=== PATIENT | male | born 1950 | race Caucasian/White ===

== ENCOUNTER 2016-10-15 16:46 | Outpatient (CLI) | payer OTHER, BC | END 2016-10-15 20:04 | disposition home or self-care (01) | LOC: SRD 16:46 | DX: J18.9 Pneumonia, unspecified organism (principal); J90 Pleural effusion, not elsewhere classified | CPT/HCPCS: 71020-TC ==

== ENCOUNTER 2016-11-08 08:39 | Outpatient (CLI) | payer OTHER, BC | END 2016-11-08 18:21 | disposition home or self-care (01) | LOC: SCT 08:39 | DX: I25.10 Atherosclerotic heart disease of native coronary artery without angina pectoris (principal); Z87.891 Personal history of nicotine dependence; I50.9 Heart failure, unspecified; K82.8 Other specified diseases of gallbladder; M47.899 Other spondylosis, site unspecified; J98.11 Atelectasis; J90 Pleural effusion, not elsewhere classified | CPT/HCPCS: 71250-TC ==

== ENCOUNTER 2016-11-11 08:24 | Inpatient (IN) | payer OTHER ==
[~2016-11-11] VITALS: Ht 162.6 cm; Wt 75.7 kg
[2016-11-11 08:24] VITALS: BP 126/87; PULSE 116; RESP 22; TEMP 97.1; O2SAT 98
--- NOTE | 2016-11-11 08:24 | NUR ---
BROUGHT BACK VIA WHEELCHAIR AND PLACED IN BED #1, TRIAGED. REPORT GIVEN TO MADY/YESSI
--- NOTE | 2016-11-11 08:35 | NUR ---
PATIENT WAS BROUGHT IN WITH SOB X 3 WEEKS AND WORST IN THE LAST 2 DAYS. PATIENT WAS BROUGHT IN WITH WHEELCHAIR. PATIENT IS SPEAKING IN FULL SENTENCES, SHOWING THAT HE IS NOT IN THAT MUCH DISTRESS. PATIENT IS COOPERATIVE. EKG WAS PERFORMED, IV WAS STARTED AND BLOOD WAS COLLECTED AND EKG WAS DONE. Addendum: 11/11/16 at 0846 by SCAR PATIENT SHOWS NO SOB, BREATHING IS UNLABORED, O2 SAT WAS 97% ON ROOM AIR
--- NOTE | 2016-11-11 08:37 | NUR ---
ER at bedside examining patient.
--- NOTE | 2016-11-11 08:40 | NUR ---
Medication reconciliation completed with information provided by SON. Any prior medication reconciliation on file was reviewed and corrected.
[2016-11-11] MEDS ORDERED: METF1000 PO (08:41)
[2016-11-11] MEDS ORDERED: TIZA4TAB11 PO (08:41)
[2016-11-11] MEDS ORDERED: MONT10TA25 PO (08:41)
[2016-11-11] MEDS ORDERED: GLYB5TAB7 PO (08:41)
[2016-11-11 08:46] LABS: BASOPHILS # (AUTO) 0.1 K/uL (0.0-0.2); BASOPHILS % (AUTO) 0.7 % (0.0-2.0); EOSINOPHILS # (AUTO) 0.1 K/uL (0.0-0.4); EOSINOPHILS % (AUTO) 0.8 % (0.0-4.0); HEMOGLOBIN 15.1 g/dL (14.0-18.0); LYMPHOCYTES # (AUTO) 2.7 K/uL (1.0-5.5); MEAN CORPUSCULAR HEMOGLOBIN 29 pg (27-31); MEAN CORPUSCULAR HGB CONC 32 % (32-36); MEAN CORPUSCULAR VOLUME 89 fL (79.0-98.0); MONOCYTES # (AUTO) 0.5 K/uL (0.0-1.0); MONOCYTES % (AUTO) 6.7 % (1.7-9.3); NEUTROPHILS # (AUTO) 4.5 K/uL (1.8-7.7); NEUTROPHILS % (AUTO) 57.8 % (40.0-70.0); PLATELET COUNT (AUTO) 194 K/uL (130-430); RED BLOOD CELL COUNT(AUTO) 5.27 MIL/uL (4.2-6.2); RED CELL DISTRIBUTION WIDTH 13.8 % (9.0-15.0); WHITE BLOOD COUNT (AUTO) 7.9 K/uL (4.8-10.8)
[2016-11-11 08:51] LABS: CALCIUM 9.1 mg/dL (8.4-11.0); CREATININE 1.28 mg/dL (0.55-1.30); POTASSIUM 3.8 mmol/L (3.5-5.1)
[2016-11-11 08:54] LABS: INR 1.2 (0.80-1.20); PROTHROMBIN TIME 12.8 SECS (9.5-12.5)
[2016-11-11 08:55] LABS: ALBUMIN 3.7 g/dL (3.4-4.8); TOTAL BILIRUBIN 1.3 mg/dL (0.0-1.0); TOTAL PROTEIN, SERUM 7.1 g/dL (6.4-8.3)
[2016-11-11] MEDS ORDERED: FUROSEMIDE 40 MG/4 ML VIAL IVP ONE (09:30)
--- NOTE | 2016-11-11 09:44 | NUR ---
DR GUO IS GOING TO BE ADMITTING THE PATIENT TO TELEMETRY. HE GAVE AN ORDER FOR CCHO, LOW FAT DIET AND CONSULT WITH DR TREJO AND ORDERED A 2D ECHO WITH DR TREJO TO READ. ADMITTED FOR CHF. PATIENT IS AWARE
[2016-11-11] MEDS ORDERED: ASPIRIN 81 MG TAB.CHEW PO ONE (09:45)
--- NOTE | 2016-11-11 09:54 | NUR ---
ADMIT NOTE Received pt from ER to the floor with a diagnosis of CHF. Admission process initiated. patient oriented to pain management, safety and call light-teach back done.
[2016-11-11 09:57] VITALS: BP 110/76; PULSE 102; RESP 19; TEMP 97.2; O2SAT 97
--- NOTE | 2016-11-11 10:05 | NUR ---
BROUGHT THE PATIENT TO ROOM 135 AND REPORT WAS GIVEN Jose Alfredo TAN RN. PATIENT WAS IN STABLE CONDITION WITH NO NOTED DISTRESS, DSICOMFORT OR SOB. PATIENT WAS TAKEN WITH MONITOR AND MADY ACCOMPANIED ME TO THE ROOM. IV WAS PATENT AND LASIX WAS GIVEN WITH NO INFILTRATION
[2016-11-11] MEDS ORDERED: FLU VACC QS 2016-17(36MOS+)/PF 0.5 ML/SYR SYRINGE I.M. PRN (10:15)
--- NOTE | 2016-11-11 10:36 | NUR ---
ADMISSION PATIENT IS ADMITTED TO TELE WITH CHF. PATIENT IS ALERT AND ORIENTED AND ABLE TO COMMUNICATE NEEDS TO STAFF. PATIENT IS AMBULATORY WITH ASSISTANCE. PATIENT IS EDUCATED NOT TO GET UP WITHOUT ASSISTANCE. CALL LIGHT IS WITHIN REACH AND WILL CONTINUE TO MONITOR. ADMISSION ASSESSMENT WAS COMPLETED.
--- NOTE | 2016-11-11 10:59 | NUR ---
CONSULTATION: REASON FOR CONSULT: CHF CONSULTING PHYSICIAN: MATTY TREJO MD ORDERED BY; MARYSOL GUO MD SPOKE WITH MILES
[2016-11-11 12:00] VITALS: BP 99/74; PULSE 90; RESP 18; TEMP 98.1; O2SAT 94
[2016-11-11] MEDS ORDERED: DEXTROSE 50% JECT 50 ML DISP.SYRIN IVP PRN (12:30)
--- NOTE | 2016-11-11 12:30 | NUR ---
BS CHECK DR GUO WAS IN TO SEE THE PATIENT AND NEW ORDERS TO CHECK BS WAS NOTED AND PATIENT'S BS WAS 336 AND 8 UNITS OF REGULAR INSULIN WAS GIVEN WITH ANOTHER NURSE TO WITNESS. CALL LIGHT IS WITHIN REACH AND WILL CONTINUE TO MONITOR.
[2016-11-11] MEDS: INSULIN REGULAR, HUMAN 100 UNITS/ML, 10 ML VIAL (novoLIN R) SUBCUT PRN ×3 (12:54→23:49)
[2016-11-11 12:55] LABS: ABG TOTAL HEMOGLOBIN 14.4 G/dL (12.0-18.0); BLOOD GAS BASE EXCESS -3.5 mmol/L (-3.0-3.0); BLOOD GAS COHb% 0.8 % (0.5-1.5); BLOOD GAS HHB 7.2 % (0.0-6.0); BLOOD O2Hb% 91.5 % (94.0-97.0)
[2016-11-11] MEDS ORDERED: CARVEDILOL 3.125 MG TABLET (COREG) PO ONE (13:30)
[2016-11-11] MEDS ORDERED: ASPIRIN 325 MG TABLET (ECOTRIN) PO ONE (13:30)
--- NOTE | 2016-11-11 14:28 | NUR ---
NOTE PATIENT IS RESTING IN BED RESTING COMFORTABLY IN BED WITH NO COMPLAINTS OF PAIN, NO NOTED DISTRESS, DISCOMFORT OR SOB. PATIENT HAD AN ABG DRAWN AND O2 WAS LOW, SO RT PUT THE PATIENT ON 02@2L VIA N/C AND THE PATIENT IS TOLERATING IT WELL. THE PATIENT WAS NOT GIVEN COREG BECAUSE THE BP WAS 99/68. CALL LIGHT IS WITHIN REACH AND WILL CONTINUE TO MONITOR
[2016-11-11] MEDS: tiZANidine HCL 4 MG TABLET PO SCH ×2 (15:01→20:18)
[2016-11-11 16:00] VITALS: BP 110/77; PULSE 99; RESP 18; TEMP 97.6; O2SAT 98
--- NOTE | 2016-11-11 16:11 | NUR ---
NOTE PATIENT IS RESTING COMFORTABLY IN BED WITH NO COMPLAINTS OF PAIN, NO NOTED DISTRESS, DISCOMFORT OR SOB. GAVE REPORT TO PIEDAD AND PATIENT IS AWARE. CALL LIGHT IS WITHIN REACH
--- NOTE | 2016-11-11 16:30 | NUR ---
RECEIVED PATIENT PT ASLEEP. NO SIGNS OF FACIAL GRIMACING FOR PAIN OR DISCOMFORT. NO DISTRESS NOTED. O2 VIA NASAL CANNULA @ 2L IN PLACE. CALL LIGHT WITHIN REACH. WILL MONITOR.
[2016-11-11] MEDS: metFORMIN HCL 500 MG TABLET PO SCH (17:29)
[2016-11-11] MEDS: MONTELUKAST 10 MG TABLET PO SCH (17:29)
--- NOTE | 2016-11-11 18:30 | NUR ---
CLOSING NOTES PT AWAKE RESTING IN BED WITH FAMILY AT BEDSIDE. NO SIGNIFICANT CHANGES NOTED. KEPT COMFORTABLE. WILL ENDORSE CARE TO INCOMING NURSE.
--- NOTE | 2016-11-11 19:40 | NUR ---
initial nursing notes: Patient is awake. Patient has an IV access on the right AC. Patient has BLE pitting edema +2. Encouraged patient to elevated both legs to promote fluid return and to decrease swelling.
[2016-11-11 19:56] VITALS: BP 107/75; PULSE 99; RESP 16; TEMP 97.7; O2SAT 97
[2016-11-11] MEDS: glyBURIDE 5 MG TABLET PO SCH (20:19)
[2016-11-11] MEDS: CARVEDILOL 6.25 MG TABLET (COREG) PO SCH (20:20)
[2016-11-11] MEDS: FUROSEMIDE 40 MG/4 ML VIAL IVP SCH (20:23)
[2016-11-11] MEDS ORDERED: CARVEDILOL 3.125 MG TABLET (COREG) PO SCH (21:00)
--- NOTE | 2016-11-11 21:40 | NUR ---
nursing rounds: Patient is sitting on the chair next to his bed. Encouraged patient to use urinal for voiding since patient received diuretics.
--- NOTE | 2016-11-11 23:40 | NUR ---
nursing rounds: Patient calmly resting in bed. Patient is on 2L/min oxygen with humidifier via nasal cannula.
[2016-11-12 00:52] VITALS: BP 95/66; PULSE 99; RESP 18; TEMP 96.8; O2SAT 98
--- NOTE | 2016-11-12 01:40 | NUR ---
nursing rounds: Patient asleep in bed. Kept bed alarm on for patient's safety.
--- NOTE | 2016-11-12 03:40 | NUR ---
nursing rounds: Patient is sleeping in bed. Patient has no shortness of breath.
[2016-11-12 04:27] VITALS: BP 119/77; PULSE 88; RESP 20; TEMP 97; O2SAT 96
--- NOTE | 2016-11-12 05:40 | NUR ---
nursing rounds: Patient calmly resting in bed. Call light within patient's reach.
[2016-11-12 07:19] LABS: BASOPHILS # (AUTO) 0.1 K/uL (0.0-0.2); BASOPHILS % (AUTO) 0.8 % (0.0-2.0); EOSINOPHILS # (AUTO) 0.1 K/uL (0.0-0.4); EOSINOPHILS % (AUTO) 1.4 % (0.0-4.0); HEMATOCRIT 41.7 % (36-54); HEMOGLOBIN 14.1 g/dL (14.0-18.0); LYMPHOCYTES # (AUTO) 2.2 K/uL (1.0-5.5); MEAN CORPUSCULAR HEMOGLOBIN 30 pg (27-31); MEAN CORPUSCULAR HGB CONC 34 % (32-36); MEAN CORPUSCULAR VOLUME 88 fL (79.0-98.0); MONOCYTES # (AUTO) 0.5 K/uL (0.0-1.0); NEUTROPHILS # (AUTO) 4.7 K/uL (1.8-7.7); NEUTROPHILS % (AUTO) 62.8 % (40.0-70.0); PLATELET COUNT (AUTO) 150 K/uL (130-430); RED BLOOD CELL COUNT(AUTO) 4.73 MIL/uL (4.2-6.2); RED CELL DISTRIBUTION WIDTH 13.9 % (9.0-15.0); WHITE BLOOD COUNT (AUTO) 7.6 K/uL (4.8-10.8)
--- NOTE | 2016-11-12 07:45 | NUR ---
closing nursing notes: Patient is awake, alert and oriented X 4. Patient is in no acute respiratory distress. No episodes of fall and no injuries throughout the mother helper. Provided nursing report to incoming morning shift nurse, NIMA Pereyra, at patient's bedside.
[2016-11-12 07:49] LABS: ALBUMIN 3.3 g/dL (3.4-4.8); CALCIUM 8.9 mg/dL (8.4-11.0); CREATININE 1.18 mg/dL (0.55-1.30); POTASSIUM 3.8 mmol/L (3.5-5.1); THYROID STIMULATING HORMONE 1.5 uIu/mL (0.34-4.82); TOTAL BILIRUBIN 1.1 mg/dL (0.0-1.0); TOTAL PROTEIN, SERUM 6.3 g/dL (6.4-8.3)
--- NOTE | 2016-11-12 08:07 | NUR ---
INITIAL NOTE PT SITTING IN BEDSIDE CHAIR, ALERT AND ORIENTED X4, NO S/S OF DISTRESS OR COMPLAINT OF PAIN AT THIS TIME, NO SOB NOTED, NASAL CANULA IN PLACE, VSS, NOTED RAC SALINE LOCK, PATENT, NO S/S OF INFILTRATION. BLE EDEMA NOTED, 2+ PITTING, PATIENT HAS FEET ELEVATED AT THIS TIME FROM PREVIOUS EDUCATION. SAFETY MEASURES IN PLACE, PT REPREINTED TO USE OF CALL LIGHT AND IT IS PLACED WITHIN REACH. WILL FOLLOW UP.
[2016-11-12 08:13] VITALS: BP 122/81; PULSE 98; RESP 19; TEMP 97.3; O2SAT 98
[2016-11-12] MEDS: metFORMIN HCL 500 MG TABLET PO SCH ×2 (08:24→17:56)
[2016-11-12] MEDS: THIAMINE HCL 100 MG TABLET PO SCH (08:24)
[2016-11-12] MEDS: tiZANidine HCL 4 MG TABLET PO SCH ×3 (08:25→20:54)
[2016-11-12] MEDS: LOSARTAN POTASSIUM 25 MG TABLET PO SCH (08:27)
[2016-11-12] MEDS: ASPIRIN 325 MG TABLET (ECOTRIN) PO SCH (08:27)
[2016-11-12] MEDS: FOLIC ACID 1 MG TABLET PO SCH (08:27)
[2016-11-12] MEDS: CARVEDILOL 6.25 MG TABLET (COREG) PO SCH (08:27)
[2016-11-12] MEDS: FUROSEMIDE 40 MG/4 ML VIAL IVP SCH (08:28)
[2016-11-12] MEDS: glyBURIDE 5 MG TABLET PO SCH ×2 (08:29→20:55)
--- NOTE | 2016-11-12 09:55 | NUR ---
DR GUO AT BEDSIDE
[2016-11-12] MEDS ORDERED: FUROSEMIDE 100 MG in D5W 90 ML IV SCH (10:00)
--- NOTE | 2016-11-12 10:30 | NUR ---
DR NEIL SQUIRES
[2016-11-12 12:00] VITALS: BP 102/55; PULSE 94; RESP 14; TEMP 97.5; O2SAT 98
[2016-11-12] MEDS: INSULIN REGULAR, HUMAN 100 UNITS/ML, 10 ML VIAL (novoLIN R) SUBCUT PRN ×2 (12:13→17:58)
--- NOTE | 2016-11-12 12:30 | NUR ---
ACCUCHECK 205, COVERED PER SLIDING SCALE.
--- NOTE | 2016-11-12 14:30 | NUR ---
ROUNDS PT SITTING IN SIDE CHAIR, NO S/S OF DISTRESS, SOB, OR COMPLAINT OF PAIN, VSS, NEEDS ATTENDED TO WILL FOLLOW UP.
--- NOTE | 2016-11-12 15:45 | NUR ---
ROUNDS PT SITTING IN SIDE CHAIR, RESTING, NO S/S OF DISTRESS NOTED. CALL LIGHT WITH IN REACH, WILL FOLLOW UP
[2016-11-12 16:00] VITALS: BP 97/54; PULSE 82; RESP 20; TEMP 96.3; O2SAT 100
--- NOTE | 2016-11-12 17:30 | NUR ---
ACCUCHECK 155, COVERED PER SLIDING SCALE
[2016-11-12] MEDS: MONTELUKAST 10 MG TABLET PO SCH (17:56)
--- NOTE | 2016-11-12 18:30 | NUR ---
CLOSING NOTE PT LAYING IN BED, RESTING, EASY TO AROUSE, NO S/S OF DISTRESS NOTED, NASAL CANULA REPOSITIONED, LASIX DRIP INFUSING TO RAC, PATENT, NO S/S OF INFILTRATION, PT TOLERATING WELL. SAFETY MEASURES IN PLACE DURING SHIFT, ALL NEEDS ATTENDED TOO, BED IN LOW POSITION AND LOCKED, WILL GIVE REPORT TO FOLLOWING SHIFT.
[2016-11-12 19:50] VITALS: BP 99/79; PULSE 89; RESP 15; TEMP 98.6; O2SAT 99
--- NOTE | 2016-11-12 20:53 | NUR ---
PAGED: I PAGED DR. TREJO @ [phone] I SPOKE WITH YAZAN EXCHANGE DR. TREJO CALLED BACK @ [phone]
--- NOTE | 2016-11-12 20:56 | NUR ---
PAGED: I PAGED DR. TREJO @ [phone] I SPOKE WITH YAZAN EXCHANGE DR. TREJO CALLED BACK @ [phone]
--- NOTE | 2016-11-12 20:57 | NUR ---
SPOKE WITH DR. PERALTA REGARDING PATIENT BLOOD PRESSURE OF 99/79. SAID IT IS OK TO GIVE 2100 MEDICATION COREG. STATED TO HOLD COREG IF SYSTOLIC IS 90 OR BELOW. WILL INPUT ORDER.
[2016-11-12] MEDS ORDERED: CARVEDILOL 6.25 MG TABLET (COREG) PO SCH (21:00)
--- NOTE | 2016-11-12 21:03 | NUR ---
HYGIENE GAVE PATIENT BASIN AND BODY WASH. PATIENT IS IN THE RESTROOM. GAIT IS STEADY. WILL CONTINUE TO MONITOR.
--- NOTE | 2016-11-12 22:30 | NUR ---
RAPID RESPONSE PATIENT COMPLAINED OF FEELING DIZZY. PATIENT BLOOD PRESSURE WAS 69/57. HR= 95 O2= 98 ON 2L. RR= 16. NO COMPLAINTS OF PAIN. PATIENT IS A/OX4. NO SIGNS OF DISTRESS. BREATHING IS NON LABORED. 2235= BP 71/57 VB=189, O2 97%, RR=15, NO COMPLAINTS OF PAIN 2240= BP 83/50, HR=99, O2 98%, RR 17, NO COMPLAINTS OF PAIN 2241=SPOKE TO DR. TREJO. WILL INPUT NEW ORDERS.
[2016-11-12] MEDS ORDERED: NS 250 ML IV ONE (23:15)
[2016-11-13] VITALS (7 sets, daily range): BP systolic 81–113; BP diastolic 48–73; PULSE 79–94; RESP 15–19; TEMP 96.7–98.9; O2SAT 94–100
--- NOTE | 2016-11-13 | NUR ---
ROUNDS PATIENT IS A/OX4. NO SIGNS OF DISTRESS. BREATHING IS NON LABORED. BP=96/73. HR=89, O2= 98% 2L OF O2, RR=15. WILL CONTINUE TO MONITOR. CALL LIGHT IS WITHIN REACH. BED IS ON. DAUGHTER IS AT BEDSIDE.
--- NOTE | 2016-11-13 01:20 | NUR ---
ROUNDS PATIENT IS IN BED SLEEPING. NO SIGNS OF DISTRESS. BREATHING IS NON LABORED. IO=154/79, HR=89, RR=15, CALL LIGHT IS WITHIN REACH. BED ALARM IS ON. SAFETY MEASURES ARE IN PLACE. WILL CONTINUE TO MONITOR.
--- NOTE | 2016-11-13 03:15 | NUR ---
ROUNDS PATIENT IS IN BED SLEEPING. NI SIGNS IF DISTRESS. BREATHING IS NON LABORED. CALL LIGHT IS WITHIN REACH. WILL CONTINUE TO MONITOR. BED IS ON.
--- NOTE | 2016-11-13 05:04 | NUR ---
ROUNDS PATIENT WAS GIVEN URINAL TO VOID IN.
--- NOTE | 2016-11-13 06:55 | NUR ---
SPOKE TO DOCTOR NEIL REGARDING PATIENT BLOOD PRESSURE 88/68. INFORMED MD THAT PATIENT IS ASYMPTOMATIC. PATIENT IS A/OX4. NO COMPLAINTS OF DIZZINESS. PATIENT STATED THAT HE FELT FINE. VITAL SIGNS ARE STATED. MD STATED TO CONTINUE TO HOLD LASIX DRIP AND THAT HE'LL SEE PATIENT THIS MORNING.
--- NOTE | 2016-11-13 07:20 | NUR ---
CLOSING NOTES PATIENT IS A/OX4. NO SIGNS OF DISTRESS. BREATHING IS NON LABORED. PATIENT IS SITTING UP AND WATCHING TV. IV IS PATENT AND SHOWS NO SIGNS OF COMPLICATION. CALL LIGHT IS WITHIN REACH. BED ALARM IS ON. REPORT GIVEN TO MORNING NURSE. ALL CARE ENDORSE TO THE MORNING NURSE.
--- NOTE | 2016-11-13 08:00 | NUR ---
INITIAL NOTE PT LAYING IN BED, RESTING, EASY TO AROUSE, NO S/S OF DISTRESS NOTED, PT DENIES FEELING DIZZY, DISORIENTED OR SOB, BLOOD PRESSURE 113/62 HR 87, WILL CONTINUE TO MONITOR BLOOD PRESSURE. NASAL CANULA IN PLACE. IV NOTED RAC SALINE LOCKED. SAFETY MEASURES IN PLACE, PT REORIENTED TO USE OF CALL LIGHT AND IT IS PLACED WITHIN REACH. WILL CONTINUE TO MONITOR.
[2016-11-13 08:15] LABS: ALBUMIN 3.1 g/dL (3.4-4.8); CALCIUM 8.6 mg/dL (8.4-11.0); CREATININE 1.3 mg/dL (0.55-1.30); POTASSIUM 3.8 mmol/L (3.5-5.1); TOTAL BILIRUBIN 0.9 mg/dL (0.0-1.0)
[2016-11-13] MEDS: THIAMINE HCL 100 MG TABLET PO SCH (08:52)
[2016-11-13] MEDS: metFORMIN HCL 500 MG TABLET PO SCH ×2 (08:52→17:27)
[2016-11-13] MEDS: FOLIC ACID 1 MG TABLET PO SCH (08:53)
[2016-11-13] MEDS: tiZANidine HCL 4 MG TABLET PO SCH ×3 (08:53→20:58)
[2016-11-13] MEDS: glyBURIDE 5 MG TABLET PO SCH ×2 (08:53→20:58)
[2016-11-13] MEDS: ASPIRIN 325 MG TABLET (ECOTRIN) PO SCH (08:53)
[2016-11-13] MEDS: LOSARTAN POTASSIUM 25 MG TABLET PO SCH (09:00)
--- NOTE | 2016-11-13 09:30 | NUR ---
PT SITTING IN SIDE CHAIR, CURRENT BLOOD PRESSURE 90/51 HEART RATE 94 , WILL HOLD BLOOD PRESSURE MEDICATIONS AND MAKE MD AWARE.
--- NOTE | 2016-11-13 09:35 | NUR ---
DR TREJO MAKING ROUNDS, AWARE OF BLOOD PRESSURE MEDICATION BEING HELD DUE TO LOW BP
--- NOTE | 2016-11-13 11:01 | NUR ---
DR SARI LIZARRAGA
[2016-11-13] MEDS ORDERED: FUROSEMIDE 40 MG TABLET PO ONE (11:30)
[2016-11-13] MEDS: INSULIN REGULAR, HUMAN 100 UNITS/ML, 10 ML VIAL (novoLIN R) SUBCUT PRN (12:03)
--- NOTE | 2016-11-13 13:00 | NUR ---
ACCUCHECK 223, COVERED PER SLIDING SCALE
[2016-11-13] MEDS: MONTELUKAST 10 MG TABLET PO SCH (17:27)
--- NOTE | 2016-11-13 17:30 | NUR ---
ACCUCHECK 83, NO COVERAGE NEEDED. PT ENCOURAGED TO HAVE A GOOD DINNER, WILL FOLLOW UP
--- NOTE | 2016-11-13 18:00 | NUR ---
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 AWAITING CALL BACK
--- NOTE | 2016-11-13 18:32 | NUR ---
UPDATED DR JOHNSON ON PATIENTS STATUS, RELAYED THAT PATIENTS BLOOD PRESSURE HAS BEEN DECREASED TODAY, AVERAGING AROUND 90/52, INFORMED THAT COREG, LOSARTAN, AND LASIX HAVE BEEN HELD AND INQUIRED TO WHAT TO DO DOING THEY EVENING. MD STATED TO HOLD BLOOD PRESSURE MEDICATIONS THIS EVENING AND TO GIVE THE LASIX. WILL INFORM SHERIFF SERGEANT.
--- NOTE | 2016-11-13 18:38 | NUR ---
CLOSING NOTE PT LAYING IN BED, COMPLAINS OF FEELING LIKE HIS BLOOD PRESSURE IS LOW AGAIN, BP 91/59 HR [address] JOHNSON ORDERS. WILL UPDATE FOLLOWING SHIFT. NASAL CANULA IN PLACE, IV SITE TO RAC PATENT AND INTACT. ALL NEEDS MEET DURING SHIFT, SAFETY MEASURES IN PLACE, CALL LIGHT WITHIN REACH, WILL GIVE REPORT TO FOLLOWING SHIFT.
--- NOTE | 2016-11-13 19:40 | NUR ---
OPENING NOTE PATIENT IS IN BED WATCHING TV AND TALKING ON THE PHONE. VITAL SIGNS ARE STABLE. NO SIGNS OF DISTRESS. BREATHING IS NON LABORED. IV IS PATENT AND SHOWS NO SIGNS OF COMPLICATIONS. PATIENT HAS NO COMPLAINTS OF PAIN. PATIENT INSTRUCTED TO CALL FOR ASSISTANCE. BED IS ON. CALL LIGHT IS WITHIN REACH. WILL CONTINUE TO MONITOR.
[2016-11-13] MEDS: FUROSEMIDE 40 MG TABLET PO SCH (20:58)
[2016-11-13] MEDS: CARVEDILOL 6.25 MG TABLET (COREG) PO SCH (21:00)
--- NOTE | 2016-11-13 21:00 | NUR ---
ROUNDS PATIENT WAS ASSISTED TO THE RESTROOM AND BACK INTO BED. PATIENT HAS NO COMPLAINTS OF PAIN. BREATHING IS NON LABORED. NO SIGNS OF DISTRESS. CALL LIGHT IS WITHIN REACH. BED ALARM IS ON. WILL CONTINUE TO MONITOR.
--- NOTE | 2016-11-13 21:00 | NUR ---
MEDICATION NOT GIVEN 2100 COREG WAS NOT GIVEN BLOOD PRESSURE IS TOO LOW. BP=93/67. IS AWARE.
--- NOTE | 2016-11-13 22:00 | NUR ---
ROUNDS PATIENT IS IN BED SITTING UP AND TALKING TO DAUGHTER. NO SIGNS OF DISTRESS. BREATHING IS NON LABORED. CALL LIGHT IS WITHIN REACH. BED ALARM IS ON. WILL CONTINUE TO MONITOR.
[2016-11-14] VITALS (8 sets, daily range): BP systolic 91–118; BP diastolic 42–80; PULSE 51–103; RESP 14–18; TEMP 97.3–98.5; O2SAT 96–100
--- NOTE | 2016-11-14 00:50 | NUR ---
ROUNDS PATIENT IS IN BED RESTING COMFORTABLY. NO SIGNS OF DISTRESS. PATIENT HAS NO COMPLAINTS OF PAIN. BREATHING IS NON LABORED. BED ALARM IS ON. CALL LIGHT IS WITHIN REACH. WILL CONTINUE TO MONITOR.
--- NOTE | 2016-11-14 03:35 | NUR ---
ROUNDS PATIENT IS IN BED SLEEPING. NO SIGNS OF DISTRESS. BREATHING IS NON LABORED. CALL LIGHT IS WITHIN REACH. BED ALARM IS ON. WILL CONTINUE TO MONITOR.
--- NOTE | 2016-11-14 05:45 | NUR ---
IV SITE CLEANED IV SITE WAS CLEANED. SITE APPEARED BLOODY. IV IS PATENT AND SHOWS NO SIGNS OF COMPLICATIONS.
--- NOTE | 2016-11-14 06:57 | NUR ---
CLOSING NOTES PATIENT IS A/OX4. NO SIGNS OF DISTRESS. BREATHING IS NON LABORED. PATIENT IS WATCHING TV AND SITTING UP IN BED. PATIENT HAS NO COMPLAINTS OF PAIN. CALL LIGHT IS WITHIN REACH. BED ALARM IS ON. WILL ENDORSE ALL CARE TO THE MORNING NURSE.
--- NOTE | 2016-11-14 08:15 | NUR ---
OPENING NOTE RECEIVED REPORT FROM NIGHT NURSE, PATIENT IS RESTING IN BED COMFORTABLY WITH NO COMPLAINTS OF PAIN, NO NOTED DISTRESS, DISCOMFORT OR SOB. PATIENT IS ALERT AND ORIENTED AND ABLE TO COMMUNICATE NEEDS TO STAFF, PATIENT IS AMBULATORY WITH ASSISTANCE. BED IS IN LOWEST POSITION AND CALL LIGHT IS WITHIN REACH AND WILL CONTINUE TO MONITOR.
[2016-11-14 08:21] LABS: CALCIUM 8.7 mg/dL (8.4-11.0); CREATININE 1.24 mg/dL (0.55-1.30); POTASSIUM 3.9 mmol/L (3.5-5.1)
[2016-11-14] MEDS: THIAMINE HCL 100 MG TABLET PO SCH (08:28)
[2016-11-14] MEDS: metFORMIN HCL 500 MG TABLET PO SCH ×2 (08:28→17:18)
[2016-11-14] MEDS: glyBURIDE 5 MG TABLET PO SCH ×2 (08:28→20:56)
[2016-11-14] MEDS: FOLIC ACID 1 MG TABLET PO SCH (08:28)
[2016-11-14] MEDS: LOSARTAN POTASSIUM 25 MG TABLET PO SCH (08:29)
[2016-11-14] MEDS: FUROSEMIDE 40 MG TABLET PO SCH ×2 (08:29→20:56)
[2016-11-14] MEDS: ASPIRIN 325 MG TABLET (ECOTRIN) PO SCH (08:29)
[2016-11-14] MEDS: tiZANidine HCL 4 MG TABLET PO SCH ×3 (08:29→20:57)
[2016-11-14] MEDS: CARVEDILOL 6.25 MG TABLET (COREG) PO SCH ×2 (08:29→20:55)
--- NOTE | 2016-11-14 10:42 | NUR ---
NOTE PATIENT IS RESTING IN BED COMFORTABLY WITH NO COMPLAINTS OF PAIN, NO NOTED DISTRESS, DISCOMFORT OR SOB. BED IS IN LOWEST POSITION AND CALL LIGHT IS WITHIN REACH. WILL CONTINUE TO MONITOR. PATIENT'S MEDICATIONS WERE GIVEN WITH NO COMPLICATIONS EXCEPT THE BLOOD PRESSURE MEDICATIONS BECAUSE THE PATIENT'S BP IS 94/55.
--- NOTE | 2016-11-14 12:00 | NUR ---
NOTE PATIENT IS RESTING IN BED COMFORTABLY WITH NO COMPLAINTS OF PAIN, NO NOTED DISTRESS, DISCOMFORT OR SOB. BS WAS CHECKED AND IT WAS 189 AND 2 UNITS OF REGULAR WAS GIVEN WITH ANOTHER RN TO WITNESS. CALL LIGHT IS WITHIN REACH AND WILL CONTINUE TO MONITOR.
[2016-11-14] MEDS: INSULIN REGULAR, HUMAN 100 UNITS/ML, 10 ML VIAL (novoLIN R) SUBCUT PRN (12:03)
--- NOTE | 2016-11-14 14:30 | NUR ---
NOTE PATIENT IS RESTING IN BED COMFORTABLY WITH NO COMPLAINTS OF PAIN, NO NOTED DISTRESS, DISCOMFORT OR SOB. BED IS IN LOWEST POSITION AND CALL LIGHT IS WITHIN REACH. WILL CONTINUE TO MONITOR.
[2016-11-14] MEDS: IPRATROPIUM/ALBUTEROL SULFATE 3 ML AMPUL.NEB INH SCH ×2 (15:00→23:23)
--- NOTE | 2016-11-14 16:48 | NUR ---
NOTE PATIENT IS RESTING COMFORTABLY IN BED WITH NO COMPLAINTS OF PAIN, NO NOTED DISTRESS, DISCOMFORT OR SOB. BED IS IN LOWEST POSITION AND CALL LIGHT IS WITHIN REACH. WILL CONTINUE TO MONITOR.
[2016-11-14] MEDS: MONTELUKAST 10 MG TABLET PO SCH (17:18)
--- NOTE | 2016-11-14 18:24 | NUR ---
CLOSING NOTE PATIENT IS RESTING IN BED COMFORTABLY WITH NO COMPLAINTS OF PAIN, NO NOTED DISTRESS, DISCOMFORT OR SOB. PATIENT IS ON O2@2L VIA N/C. PATIENT'S BS WAS CHECKED AND IT WAS 102 AND NO COVERAGE WAS NEEDED. BED IS IN LOWEST POSITION AND CALL LIGHT IS WITHIN REACH. WILL GIVE REPORT TO NIGHT NURSE.
--- NOTE | 2016-11-14 19:30 | NUR ---
notes received the pt from the day nurse.pt sitting up in a chair with no c/o sobo2 via nc in place at 2l/min.iv to lt ac intact,no redness or swelling noted.monitor in place and shows SR. call light within reach,safety measures in progress.continue to monitor.
--- NOTE | 2016-11-14 21:30 | NUR ---
notes pt back in bed watching tv.medications given and tolerated well.continue to monitor.
--- NOTE | 2016-11-14 23:53 | NUR ---
notes pt awaken for accucheck that was 130,no insulin needed per s/s.continue to monitor.
[2016-11-15 00:36] VITALS: BP 98/65; PULSE 92; RESP 18; TEMP 97.3; O2SAT 96
--- NOTE | 2016-11-15 01:30 | NUR ---
pt sleeping ,call light within reach.continue to monitor.
--- NOTE | 2016-11-15 03:30 | NUR ---
pt remains asleep,call light within reach.continue to monitor.
[2016-11-15 04:22] VITALS: BP 117/93; PULSE 108; RESP 18; TEMP 97; O2SAT 96
--- NOTE | 2016-11-15 05:35 | NUR ---
notes pt sleeping.will continue to monitor.
--- NOTE | 2016-11-15 06:19 | NUR ---
closing notes pt awake alert,accucheck was 101,no insulin needed.will endorse the care of the pt to the day nurse.
[2016-11-15 07:41] LABS: CALCIUM 8.6 mg/dL (8.4-11.0); CREATININE 1.32 mg/dL (0.55-1.30); POTASSIUM 3.5 mmol/L (3.5-5.1)
[2016-11-15 08:00] VITALS: BP 112/57; PULSE 68; RESP 18; TEMP 97.9; O2SAT 95
--- NOTE | 2016-11-15 08:37 | NUR ---
OPENING NOTE RECEIVED REPORT FROM NIGHT NURSE, PATIENT IS RESTING COMFORTABLY IN BED WITH NO COMPLAINTS OF PAIN, NO NOTED DISTRESS, DISCOMFORT OR SOB. PATIENT IS ALERT AND ORIENTED AND ABLE TO COMMUNICATE NEEDS TO STAFF. PATIENT IS AMBULATORY WITH ASSISTANCE. BED IS IN LOWEST POSITION, CALL LIGHT IS WITHIN REACH. PATIENT IS EDUCATED NOT TO GET UP WITHOUT ASSISTANCE. WILL CONTINUE TO MONITOR.
[2016-11-15] MEDS: THIAMINE HCL 100 MG TABLET PO SCH (08:55)
[2016-11-15] MEDS: FOLIC ACID 1 MG TABLET PO SCH (08:55)
[2016-11-15] MEDS: glyBURIDE 5 MG TABLET PO SCH (08:55)
[2016-11-15] MEDS: ASPIRIN 325 MG TABLET (ECOTRIN) PO SCH (08:55)
[2016-11-15] MEDS: tiZANidine HCL 4 MG TABLET PO SCH (08:56)
[2016-11-15] MEDS: FUROSEMIDE 40 MG TABLET PO SCH (08:56)
[2016-11-15] MEDS: metFORMIN HCL 500 MG TABLET PO SCH (08:56)
[2016-11-15] MEDS: CARVEDILOL 6.25 MG TABLET (COREG) PO SCH (08:56)
[2016-11-15] MEDS: LOSARTAN POTASSIUM 25 MG TABLET PO SCH (08:56)
[2016-11-15] MEDS ORDERED: ALBMDI INH (10:15)
--- NOTE | 2016-11-15 10:59 | NUR ---
NOTE DR RIVER WAS HERE TO SEE THE PATIENT AND NEW ORDERS TO DISCHARGE THE PATIENT HOME WAS NOTED AND CARRIED OUT. PATIENT IS AWARE AND HAS NO COMPLAINTS OF PAIN, NO NOTED DISTRESS, DISCOMFORT OR SOB. WILL WORK ON THE DISCHARGE PAPERWORK AND WILL GIVE TRANSITION OF CARE BEFORE DISCHARGING THE PATIENT. CALL LIGHT IS WITHIN REACH AND WILL CONTINUE TO MONITOR.
[2016-11-15 11:16] VITALS: BP 113/73; PULSE 103; RESP 18; TEMP 97.9; O2SAT 93
--- NOTE | 2016-11-15 11:45 | NUR ---
DISCHARGE PATIENT WAS GIVEN TRANSITION OF CARE INSTRUCTIONS AND PATIENT VERBALIZED UNDERSTANDING. THE PATIENT WAS GIVEN THE FLU VACCINE AND THE IV WAS TAKEN OUT AND THE ARM BAND WAS CUT OFF. THE PATIENT ASKED FOR DR TREJO'S NUMBER TO FOLLOW UP WITH AND IT WAS GIVEN. THE PATIENT STATED THAT ALL HIS BELONGINGS ARE BEING TAKEN HOME. PATIENT IS JUST WAITING FOR TO PICK HIM UP.
[2016-11-15 11:47] VITALS: BP 113/73; PULSE 103; RESP 18; TEMP 97.9; O2SAT 93
--- NOTE | 2016-11-20 12:10 | NUR ---
Discharge Follow Up Phone Call DRIVER ENGINEER phoned patient, , on 11/18/16, 11/19/16 and 11/20/16 and left voicemail messages with offer of assistance and Social Service contact information. No further calls will be attempted.
== END 2016-11-15 13:25 | disposition home or self-care (01) | DRG 291 ==
LOC: SED 08:24 → STU 09:44
PROVIDERS: ADMIT Internal Medicine Hospice and Palliative Medicine; ATTEND Internal Medicine Hospice and Palliative Medicine
DX: I13.0 Hypertensive heart and chronic kidney disease with heart failure and stage 1 through stage 4 chronic kidney disease, or unspecified chronic kidney disease (principal); I50.43 Acute on chronic combined systolic (congestive) and diastolic (congestive) heart failure; I42.0 Dilated cardiomyopathy; E11.65 Type 2 diabetes mellitus with hyperglycemia; I34.0 Nonrheumatic mitral (valve) insufficiency; F10.20 Alcohol dependence, uncomplicated; Z87.891 Personal history of nicotine dependence; Z83.3 Family history of diabetes mellitus; Z79.82 Long term (current) use of aspirin; Z79.899 Other long term (current) drug therapy; N18.3 Chronic kidney disease, stage 3 (moderate)
CPT/HCPCS: 36415; 36600; 71010; 71020-TC; 71250-TC; 80048; 80053; 80061; 82550-TC; 82803-TC; 82962; 83036; 83735-TC; 83880; 84443-TC; 84484; 85025; 85610-TC; 85730-TC; 93005; 93306; 94640; 96374; 99285; J1815; J1940; J7030; J7040; J7060; Q2037

== ENCOUNTER 2016-12-04 19:16 | Emergency (ER) | payer OTHER, BC ==
[~2016-12-04] VITALS: Ht 162.6 cm; Wt 77.6 kg
[~2016-12-04 19:16] MED LIST: ALBMDI INH; GLYB5TAB7 PO; METF1000 PO; MONT10TA25 PO; TIZA4TAB11 PO
[2016-12-04 19:18] VITALS: BP 129/90; PULSE 110; RESP 18; TEMP 97.8; O2SAT 96
--- NOTE | 2016-12-04 19:24 | NUR ---
Patient to ER bed 4 to gown for evaluation. Side rails up. Report given to Mamta HERRING.
--- NOTE | 2016-12-04 19:33 | NUR ---
Patient to ER C/O SOB. Patient states that today he is having a hard time takign a deep breath. Patient states that recently he was diagnosed with CHF and is on medication for fluid overload. AAOx4, unlabored breathing, clear lungs, no signs of acute distress
[2016-12-04] MEDS ORDERED: FURO20TA4 PO (19:42)
[2016-12-04] MEDS ORDERED: LOSA25TA3 PO (19:42)
[2016-12-04] MEDS ORDERED: SITA100T7 PO (19:43)
[2016-12-04] MEDS ORDERED: CARV3.1246 PO (19:43)
[2016-12-04] MEDS ORDERED: ASPI-1063 PO (19:43)
--- NOTE | 2016-12-04 19:53 | NUR ---
Medication reconciliation completed with information provided by - bottles from patient. Any prior medication reconciliation on file was reviewed and corrected.
--- NOTE | 2016-12-04 19:59 | NUR ---
ER MD Robertson at bedside evaluating the patient
[2016-12-04] MEDS ORDERED: IPRATROPIUM/ALBUTEROL SULFATE 3 ML AMPUL.NEB INH ONE (20:15)
--- NOTE | 2016-12-04 20:19 | NUR ---
RT at bedside for breathing treatment
[2016-12-04 20:27] LABS: BASOPHILS # (AUTO) 0.1 K/uL (0.0-0.2); BASOPHILS % (AUTO) 0.8 % (0.0-2.0); EOSINOPHILS # (AUTO) 0.1 K/uL (0.0-0.4); EOSINOPHILS % (AUTO) 1.5 % (0.0-4.0); HEMATOCRIT 40.3 % (36-54); HEMOGLOBIN 13.9 g/dL (14.0-18.0); MEAN CORPUSCULAR HEMOGLOBIN 30 pg (27-31); MEAN CORPUSCULAR HGB CONC 35 % (32-36); MEAN CORPUSCULAR VOLUME 87 fL (79.0-98.0); MONOCYTES # (AUTO) 0.5 K/uL (0.0-1.0); MONOCYTES % (AUTO) 6.4 % (1.7-9.3); NEUTROPHILS # (AUTO) 5.1 K/uL (1.8-7.7); NEUTROPHILS % (AUTO) 65.3 % (40.0-70.0); PLATELET COUNT (AUTO) 208 K/uL (130-430); RED BLOOD CELL COUNT(AUTO) 4.65 MIL/uL (4.2-6.2); RED CELL DISTRIBUTION WIDTH 15.1 % (9.0-15.0); WHITE BLOOD COUNT (AUTO) 7.8 K/uL (4.8-10.8)
[2016-12-04 20:29] LABS: CALCIUM 9.1 mg/dL (8.4-11.0); CREATININE 1.18 mg/dL (0.55-1.30); POTASSIUM 4.4 mmol/L (3.5-5.1)
[2016-12-04 20:32] LABS: INR 1.2 (0.80-1.20); PROTHROMBIN TIME 12.5 SECS (9.5-12.5)
[2016-12-04 20:34] LABS: ALBUMIN 3.5 g/dL (3.4-4.8); TOTAL BILIRUBIN 0.9 mg/dL (0.0-1.0); TOTAL PROTEIN, SERUM 6.7 g/dL (6.4-8.3)
[2016-12-04] MEDS ORDERED: methylPREDNISolone SOD SUCC/PF 62.5 MG/ML VIAL IVP ONE (21:00)
[2016-12-04 21:51] VITALS: BP 115/64; PULSE 74; RESP 18; TEMP 98; O2SAT 98
--- NOTE | 2016-12-04 21:51 | NUR ---
Patient given written and verbal discharge instructions and verbalizes understanding. ER MD Robertson discussed with patient the results and treatment provided. Patient in stable condition. ID arm band removed. IV catheter removed intact and dressing applied, no active bleeding. Rx of albuterol & atrovent given. Patient educated on pain management and to follow up with PMD. Pain Scale 0/10. Opportunity for questions provided and answered.
== END 2016-12-04 21:51 | disposition home or self-care (01) ==
LOC: SED 19:16
DX: J44.1 Chronic obstructive pulmonary disease with (acute) exacerbation (principal); I50.9 Heart failure, unspecified; R61 Generalized hyperhidrosis; E11.9 Type 2 diabetes mellitus without complications; Z79.82 Long term (current) use of aspirin
CPT/HCPCS: 36415; 71010; 80053; 82962; 83880; 84484; 85025; 85610; 85730; 93005; 94640; 96374; 99285; J2930

== ENCOUNTER 2017-10-04 17:50 | Inpatient (IN) | payer OTHER ==
[~2017-10-04] VITALS: Ht 162.6 cm; Wt 78.0 kg
[~2017-10-04 17:50] MED LIST changes: +ASPI-1063 PO; +CARV3.1246 PO; +FURO20TA4 PO; +LOSA25TA3 PO; +SITA100T7 PO
[2017-10-04 17:53] VITALS: BP_SYST 150
[2017-10-04] MEDS ORDERED: methylPREDNISolone SOD SUCC/PF 62.5 MG/ML VIAL IVP ONE (18:00)
[2017-10-04] MEDS ORDERED: MORPHINE 4 MG/ML INJ. SYRINGE IVP ONE (18:00)
[2017-10-04] MEDS ORDERED: CLOPIDOGREL BISULFATE 75 MG TABLET PO ONE (18:00)
[2017-10-04] MEDS ORDERED: ASPIRIN 325 MG TABLET PO ONE (18:00)
[2017-10-04 18:14] LABS: BASOPHILS # (AUTO) 0.3 K/uL (0.0-0.2); EOSINOPHILS # (AUTO) 0.3 K/uL (0.0-0.4); HEMOGLOBIN 12.3 g/dL (14.0-18.0); MONOCYTES # (AUTO) 0.8 K/uL (0.0-1.0)
[2017-10-04] MEDS ORDERED: FUROSEMIDE 40 MG/4 ML VIAL IVP ONE ×2 (18:15→23:15)
[2017-10-04] MEDS ORDERED: MORPHINE SULFATE 10 MG/ML VIAL ONE (18:17)
[2017-10-04 18:18] LABS: MEAN CORPUSCULAR VOLUME 94 fL (79.0-98.0)
[2017-10-04 18:20] LABS: MEAN CORPUSCULAR HEMOGLOBIN 31 pg (27-31); MEAN CORPUSCULAR HGB CONC 33 % (32-36); RED BLOOD CELL COUNT(AUTO) 3.93 MIL/uL (4.2-6.2); RED CELL DISTRIBUTION WIDTH 14.9 % (9.0-15.0); WHITE BLOOD COUNT (AUTO) 11.3 K/uL (4.8-10.8)
[2017-10-04 18:21] LABS: BASOPHILS % (AUTO) 2.5 % (0.0-2.0); EOSINOPHILS % (AUTO) 2.5 % (0.0-4.0); LYMPHOCYTES % (AUTO) 15.7 % (20.5-51.5); MONOCYTES % (AUTO) 7.4 % (1.7-9.3); NEUTROPHILS % (AUTO) 71.9 % (40.0-70.0); PLATELET COUNT (AUTO) 297 K/uL (130-430)
[2017-10-04 18:22] LABS: LYMPHOCYTES # (AUTO) 1.8 K/uL (1.0-5.5); NEUTROPHILS # (AUTO) 8.1 K/uL (1.8-7.7)
[2017-10-04 18:31] LABS: CALCIUM 9.8 mg/dL (8.4-11.0); CREATININE 1.44 mg/dL (0.55-1.30); POTASSIUM 4.5 mmol/L (3.5-5.1)
[2017-10-04 18:35] LABS: INR 1.2 (0.80-1.20)
[2017-10-04 18:36] LABS: ALBUMIN 3.5 g/dL (3.4-4.8); TOTAL BILIRUBIN 0.7 mg/dL (0.0-1.0)
[2017-10-04] MEDS ORDERED: GLIP-172 PO (19:08)
[2017-10-04] MEDS ORDERED: LINA5TAB2 PO (19:08)
[2017-10-04] MEDS ORDERED: CARV6.2554 PO (19:08)
[2017-10-04] MEDS ORDERED: LIP40 PO (19:08)
[2017-10-04] MEDS ORDERED: FURO-149 PO (19:08)
[2017-10-04] MEDS ORDERED: NACL 0.9% 1,000 ML IV SCH (19:22)
[2017-10-04] MEDS ORDERED: ONDANSETRON HCL 4 MG/2 ML VIAL IVP PRN (19:30)
[2017-10-04] MEDS ORDERED: ACETAMINOPHEN 325 MG TABLET PO PRN (19:30)
[2017-10-04] MEDS ORDERED: MORPHINE 2 MG/ML INJ. SYRINGE IVP PRN (19:30)
[2017-10-04 20:37] VITALS: BP_SYST 115
[2017-10-04] MEDS: DOCUSATE SODIUM 100 MG CAPSULE PO SCH (20:45)
[2017-10-04 21:32] LABS: BILIRUBIN,URINE NEGATIVE (NEGATIVE); BLOOD, URINE NEGATIVE (NEGATIVE); CLARITY/URINE CLEAR (CLEAR); COLOR,URINE YELLOW (YELLOW); GLUCOSE,URINE NEGATIVE (NEGATIVE); KETONES,URINE NEGATIVE (NEGATIVE); LEUKOCYTE ESTERASE ,URINE NEGATIVE (NEGATIVE); NITRITE, URINE NEGATIVE (NEGATIVE); PH,URINE 5.5 (5.0-8.0); PROTEIN URINE NEGATIVE (NEGATIVE)
[2017-10-04] MEDS ORDERED: IPRATROPIUM/ALBUTEROL SULFATE 3 ML AMPUL.NEB INH PRN (23:00)
[2017-10-05 00:45] VITALS: BP_SYST 112
[2017-10-05 02:00] VITALS: BP_SYST 115
[2017-10-05] MEDS: IPRATROPIUM/ALBUTEROL SULFATE 3 ML AMPUL.NEB INH SCH ×6 (02:33→23:00)
[2017-10-05 03:30] LABS: FREE T4 (FREE THYROXINE) 1.2 ng/dl (0.8-1.5); PHOSPHORUS 4.3 mg/dL (2.7-4.5); THYROID STIMULATING HORMONE 1.55 uIu/mL (0.36-3.74)
[2017-10-05 03:34] LABS: CHOLESTEROL 138 mg/dL (<200); HDL CHOLESTEROL 30 mg/dL (>45); LDL CHOLESTEROL 89 mg/dL (<100); TRIGLYCERIDES 54 mg/dL (30-150)
[2017-10-05 08:36] VITALS: BP_SYST 99
[2017-10-05] MEDS ORDERED: CARVEDILOL 3.125 MG TABLET (COREG) PO SCH (09:00)
[2017-10-05] MEDS: DOCUSATE SODIUM 100 MG CAPSULE PO SCH ×2 (09:00→20:18)
[2017-10-05] MEDS ORDERED: FUROSEMIDE 40 MG/4 ML VIAL IVP SCH (09:00)
[2017-10-05] MEDS: LOSARTAN POTASSIUM 25 MG TABLET PO SCH (09:45)
[2017-10-05] MEDS: ASPIRIN 81 MG TABLET(ECOTRIN) PO SCH (09:46)
[2017-10-05 12:00] VITALS: BP_SYST 103
[2017-10-05] MEDS: cefTRIAXone 1 GM in D5W 50 ML IV SCH (15:43)
[2017-10-05 16:00] VITALS: BP_SYST 120
[2017-10-05] MEDS ORDERED: GLUCOSE 15 GM GEL (in 37.5 GM TUBE) PO PRN ×2 (16:00)
[2017-10-05] MEDS ORDERED: DEXTROSE 50%-WATER 50 ML DISP.SYRIN IVP PRN ×2 (16:00)
[2017-10-05] MEDS: INSULIN REGULAR, HUMAN 100 UNITS/ML, 10 ML VIAL (novoLIN R) SUBCUT PRN ×3 (16:20→21:21)
[2017-10-05] MEDS: MONTELUKAST 10 MG TABLET PO SCH (19:43)
[2017-10-05 20:00] VITALS: BP_SYST 129
[2017-10-05] MEDS: ATORVASTATIN 20 MG TABLET PO SCH (20:18)
[2017-10-05] MEDS: CARVEDILOL 6.25 MG TABLET (COREG) PO SCH (20:19)
[2017-10-05] MEDS ORDERED: NS 500 ML IV ONE (20:30)
[2017-10-06 01:43] VITALS: BP_SYST 114
[2017-10-06] MEDS: IPRATROPIUM/ALBUTEROL SULFATE 3 ML AMPUL.NEB INH SCH ×7 (03:00→23:00)
[2017-10-06 05:00] VITALS: BP_SYST 124
[2017-10-06 06:39] LABS: BASOPHILS # (AUTO) 0.1 K/uL (0.0-0.2); BASOPHILS % (AUTO) 0.4 % (0.0-2.0); EOSINOPHILS # (AUTO) 0.1 K/uL (0.0-0.4); EOSINOPHILS % (AUTO) 0.5 % (0.0-4.0); HEMATOCRIT 32.9 % (36-54); HEMOGLOBIN 11.1 g/dL (14.0-18.0); LYMPHOCYTES # (AUTO) 1.7 K/uL (1.0-5.5); LYMPHOCYTES % (AUTO) 11.7 % (20.5-51.5); MEAN CORPUSCULAR HEMOGLOBIN 32 pg (27-31); MEAN CORPUSCULAR HGB CONC 34 % (32-36); MEAN CORPUSCULAR VOLUME 94 fL (79.0-98.0); MONOCYTES # (AUTO) 0.9 K/uL (0.0-1.0); MONOCYTES % (AUTO) 6.5 % (1.7-9.3); NEUTROPHILS # (AUTO) 11.3 K/uL (1.8-7.7); NEUTROPHILS % (AUTO) 80.9 % (40.0-70.0); PLATELET COUNT (AUTO) 264 K/uL (130-430); RED BLOOD CELL COUNT(AUTO) 3.51 MIL/uL (4.2-6.2); RED CELL DISTRIBUTION WIDTH 14.8 % (9.0-15.0); WHITE BLOOD COUNT (AUTO) 14.1 K/uL (4.8-10.8)
[2017-10-06 07:00] LABS: CALCIUM 8.7 mg/dL (8.4-11.0); CREATININE 1.33 mg/dL (0.55-1.30); POTASSIUM 3.9 mmol/L (3.5-5.1)
[2017-10-06 07:21] LABS: TOTAL BILIRUBIN 0.6 mg/dL (0.0-1.0)
[2017-10-06 08:07] VITALS: BP_SYST 107
[2017-10-06] MEDS: FUROSEMIDE 40 MG/4 ML VIAL IVP SCH (09:00)
[2017-10-06] MEDS: CARVEDILOL 6.25 MG TABLET (COREG) PO SCH ×2 (09:00→21:07)
[2017-10-06] MEDS: LOSARTAN POTASSIUM 25 MG TABLET PO SCH (09:00)
[2017-10-06] MEDS: DOCUSATE SODIUM 100 MG CAPSULE PO SCH ×2 (09:37→21:07)
[2017-10-06] MEDS: ASPIRIN 81 MG TABLET(ECOTRIN) PO SCH (09:37)
[2017-10-06 12:53] VITALS: BP_SYST 118
[2017-10-06] MEDS: cefTRIAXone 1 GM in D5W 50 ML IV SCH (13:12)
[2017-10-06 17:04] VITALS: BP_SYST 103; BP_SYST 108
[2017-10-06] MEDS: MONTELUKAST 10 MG TABLET PO SCH (17:40)
[2017-10-06 20:30] VITALS: BP_SYST 118
[2017-10-06] MEDS: ATORVASTATIN 20 MG TABLET PO SCH (21:05)
[2017-10-06] MEDS: INSULIN REGULAR, HUMAN 100 UNITS/ML, 10 ML VIAL (novoLIN R) SUBCUT PRN (21:09)
[2017-10-07 01:43] VITALS: BP_SYST 115
[2017-10-07 02:11] LABS: T4 (THYROXINE) 5.5 ug/dL (4.5-12.0)
[2017-10-07] MEDS: IPRATROPIUM/ALBUTEROL SULFATE 3 ML AMPUL.NEB INH SCH ×6 (03:00→23:00)
[2017-10-07 05:35] VITALS: BP_SYST 107
[2017-10-07 06:13] LABS: BASOPHILS # (AUTO) 0.1 K/uL (0.0-0.2); BASOPHILS % (AUTO) 0.6 % (0.0-2.0); CALCIUM 9.1 mg/dL (8.4-11.0); CREATININE 1.42 mg/dL (0.55-1.30); EOSINOPHILS # (AUTO) 0.1 K/uL (0.0-0.4); EOSINOPHILS % (AUTO) 0.9 % (0.0-4.0); HEMATOCRIT 36.3 % (36-54); HEMOGLOBIN 12.2 g/dL (14.0-18.0); LYMPHOCYTES # (AUTO) 1.5 K/uL (1.0-5.5); LYMPHOCYTES % (AUTO) 12.2 % (20.5-51.5); MEAN CORPUSCULAR HEMOGLOBIN 32 pg (27-31); MEAN CORPUSCULAR HGB CONC 34 % (32-36); MEAN CORPUSCULAR VOLUME 95 fL (79.0-98.0); MONOCYTES % (AUTO) 7.8 % (1.7-9.3); NEUTROPHILS # (AUTO) 9.6 K/uL (1.8-7.7); NEUTROPHILS % (AUTO) 78.5 % (40.0-70.0); PLATELET COUNT (AUTO) 291 K/uL (130-430); POTASSIUM 4.6 mmol/L (3.5-5.1); RED BLOOD CELL COUNT(AUTO) 3.81 MIL/uL (4.2-6.2); RED CELL DISTRIBUTION WIDTH 14.6 % (9.0-15.0); WHITE BLOOD COUNT (AUTO) 12.3 K/uL (4.8-10.8)
[2017-10-07] MEDS: INSULIN REGULAR, HUMAN 100 UNITS/ML, 10 ML VIAL (novoLIN R) SUBCUT PRN ×3 (06:16→20:37)
[2017-10-07 06:35] LABS: ALBUMIN 3.3 g/dL (3.4-4.8); PHOSPHORUS 3.5 mg/dL (2.7-4.5); TOTAL BILIRUBIN 1.3 mg/dL (0.0-1.0)
[2017-10-07 08:00] VITALS: BP_SYST 108
[2017-10-07] MEDS: LOSARTAN POTASSIUM 25 MG TABLET PO SCH (08:41)
[2017-10-07] MEDS: ASPIRIN 81 MG TABLET(ECOTRIN) PO SCH (08:42)
[2017-10-07] MEDS: CARVEDILOL 12.5 MG TABLET (COREG) PO SCH ×2 (08:42→20:16)
[2017-10-07] MEDS: DOCUSATE SODIUM 100 MG CAPSULE PO SCH ×2 (08:42→20:16)
[2017-10-07] MEDS: FUROSEMIDE 40 MG/4 ML VIAL IVP SCH (09:00)
[2017-10-07] MEDS ORDERED: CLOPIDOGREL BISULFATE 75 MG TABLET PO ONE (10:00)
[2017-10-07 11:20] LABS: HEMOGLOBIN A1C 8.3 % (4.8-5.6)
[2017-10-07 12:28] VITALS: BP_SYST 107
[2017-10-07] MEDS: cefTRIAXone 1 GM in D5W 50 ML IV SCH (13:46)
[2017-10-07 16:00] VITALS: BP_SYST 128
[2017-10-07] MEDS: MONTELUKAST 10 MG TABLET PO SCH (17:40)
[2017-10-07 20:00] VITALS: BP_SYST 94
[2017-10-07] MEDS: ATORVASTATIN 20 MG TABLET PO SCH (20:16)
[2017-10-08 00:45] VITALS: BP_SYST 116
[2017-10-08] MEDS: IPRATROPIUM/ALBUTEROL SULFATE 3 ML AMPUL.NEB INH SCH ×5 (03:00→19:52)
[2017-10-08] MEDS: INSULIN REGULAR, HUMAN 100 UNITS/ML, 10 ML VIAL (novoLIN R) SUBCUT PRN ×4 (05:39→21:20)
[2017-10-08 06:46] LABS: CREATININE 1.11 mg/dL (0.55-1.30); POTASSIUM 4.5 mmol/L (3.5-5.1); TOTAL BILIRUBIN 1.2 mg/dL (0.0-1.0)
[2017-10-08 07:55] VITALS: BP_SYST 101
[2017-10-08] MEDS: CARVEDILOL 12.5 MG TABLET (COREG) PO SCH ×2 (08:56→21:00)
[2017-10-08] MEDS: LOSARTAN POTASSIUM 25 MG TABLET PO SCH (08:57)
[2017-10-08] MEDS: CLOPIDOGREL BISULFATE 75 MG TABLET PO SCH (08:58)
[2017-10-08] MEDS: DOCUSATE SODIUM 100 MG CAPSULE PO SCH ×2 (08:58→20:24)
[2017-10-08] MEDS: FUROSEMIDE 40 MG TABLET PO SCH (08:58)
[2017-10-08] MEDS: ASPIRIN 81 MG TABLET(ECOTRIN) PO SCH (08:58)
[2017-10-08 12:31] VITALS: BP_SYST 113
[2017-10-08] MEDS: cefTRIAXone 1 GM in D5W 50 ML IV SCH (13:28)
[2017-10-08 16:24] VITALS: BP_SYST 110
[2017-10-08] MEDS: MONTELUKAST 10 MG TABLET PO SCH (17:46)
[2017-10-08 20:00] VITALS: BP_SYST 102
[2017-10-08] MEDS: ATORVASTATIN 20 MG TABLET PO SCH (20:23)
[2017-10-09] MEDS: IPRATROPIUM/ALBUTEROL SULFATE 3 ML AMPUL.NEB INH SCH ×3 (00:28→11:54)
[2017-10-09 00:54] VITALS: BP_SYST 118
[2017-10-09 07:40] VITALS: BP_SYST 109
[2017-10-09] MEDS: DOCUSATE SODIUM 100 MG CAPSULE PO SCH (08:45)
[2017-10-09] MEDS: FUROSEMIDE 40 MG TABLET PO SCH (08:46)
[2017-10-09] MEDS: ASPIRIN 81 MG TABLET(ECOTRIN) PO SCH (08:46)
[2017-10-09] MEDS: CLOPIDOGREL BISULFATE 75 MG TABLET PO SCH (08:46)
[2017-10-09] MEDS: CARVEDILOL 12.5 MG TABLET (COREG) PO SCH (08:47)
[2017-10-09] MEDS: LOSARTAN POTASSIUM 25 MG TABLET PO SCH (08:47)
[2017-10-09] MEDS: INSULIN REGULAR, HUMAN 100 UNITS/ML, 10 ML VIAL (novoLIN R) SUBCUT PRN (11:37)
[2017-10-09 12:09] VITALS: BP_SYST 95
[2017-10-09 12:33] VITALS: BP_SYST 95
== END 2017-10-09 15:00 | DRG 64 ==
LOC: SED 17:50 → STU 19:22
PROVIDERS: ADMIT Family Medicine; ATTEND Family Medicine
DX: I63.9 Cerebral infarction, unspecified (principal); I21.9 Acute myocardial infarction, unspecified; I42.0 Dilated cardiomyopathy; I24.9 Acute ischemic heart disease, unspecified; I50.9 Heart failure, unspecified; I11.0 Hypertensive heart disease with heart failure; I25.10 Atherosclerotic heart disease of native coronary artery without angina pectoris; E66.9 Obesity, unspecified; E11.9 Type 2 diabetes mellitus without complications; E78.5 Hyperlipidemia, unspecified; F41.9 Anxiety disorder, unspecified; I45.9 Conduction disorder, unspecified; J30.9 Allergic rhinitis, unspecified; J44.9 Chronic obstructive pulmonary disease, unspecified; M62.838 Other muscle spasm; R47.01 Aphasia; Z79.4 Long term (current) use of insulin; Z87.891 Personal history of nicotine dependence; Z95.810 Presence of automatic (implantable) cardiac defibrillator; Z79.82 Long term (current) use of aspirin; Z79.899 Other long term (current) drug therapy; I25.2 Old myocardial infarction; Z68.29 Body mass index [BMI] 29.0-29.9, adult
CPT/HCPCS: 36415; 70450-TC; 71045; 80048; 80053; 80061; 81003; 82140-TC; 82150-TC; 82550-TC; 82962; 83036; 83690-TC; 83735-TC; 83880; 84100-TC; 84436; 84439; 84443-TC; 84479; 84484; 85025; 85610-TC; 85730-TC; 87040-TC; 87081; 92523; 93005; 93880; 94640; 95816; 96374; 96375; 97116-GP; 97530-GP; 99285; J0696; J1815; J1940; J2270; J2405; J2930; J7030; J7040; J7050; J7060

== ENCOUNTER 2017-10-18 18:18 | Inpatient (IN) | payer OTHER ==
[~2017-10-18] VITALS: Ht 162.6 cm; Wt 79.8 kg
[~2017-10-18 18:18] MED LIST changes: +CARV6.2554 PO; +FURO-149 PO; +GLIP-172 PO; +LINA5TAB2 PO; +LIP40 PO
[2017-10-18 18:21] VITALS: BP_SYST 105
[2017-10-18] MEDS ORDERED: ASPIRIN 325 MG TABLET PO ONE (18:45)
[2017-10-18] MEDS ORDERED: FUROSEMIDE 40 MG/4 ML VIAL IVP ONE (18:45)
[2017-10-18 19:17] LABS: BASOPHILS # (AUTO) 0.1 K/uL (0.0-0.2); BASOPHILS % (AUTO) 1.1 % (0.0-2.0); EOSINOPHILS # (AUTO) 0.2 K/uL (0.0-0.4); EOSINOPHILS % (AUTO) 2.3 % (0.0-4.0); HEMATOCRIT 34.2 % (36-54); HEMOGLOBIN 11.2 g/dL (14.0-18.0); LYMPHOCYTES # (AUTO) 1.5 K/uL (1.0-5.5); LYMPHOCYTES % (AUTO) 18.1 % (20.5-51.5); MEAN CORPUSCULAR HEMOGLOBIN 31 pg (27-31); MEAN CORPUSCULAR HGB CONC 33 % (32-36); MEAN CORPUSCULAR VOLUME 94 fL (79.0-98.0); MONOCYTES # (AUTO) 0.8 K/uL (0.0-1.0); MONOCYTES % (AUTO) 9.6 % (1.7-9.3); NEUTROPHILS # (AUTO) 5.8 K/uL (1.8-7.7); NEUTROPHILS % (AUTO) 68.9 % (40.0-70.0); PLATELET COUNT (AUTO) 237 K/uL (130-430); RED BLOOD CELL COUNT(AUTO) 3.63 MIL/uL (4.2-6.2); RED CELL DISTRIBUTION WIDTH 15.1 % (9.0-15.0); WHITE BLOOD COUNT (AUTO) 8.4 K/uL (4.8-10.8)
[2017-10-18 19:19] LABS: CREATININE 1.51 mg/dL (0.55-1.30); POTASSIUM 4.8 mmol/L (3.5-5.1)
[2017-10-18 19:24] LABS: ALBUMIN 3.1 g/dL (3.4-4.8)
[2017-10-18 19:25] LABS: INR 1.5 (0.80-1.20); PROTHROMBIN TIME 15.6 SECS (9.5-12.5)
[2017-10-18] MEDS ORDERED: NS 500 ML IV ONE (20:00)
[2017-10-18] MEDS ORDERED: XOP.63 INH (20:46)
[2017-10-18] MEDS ORDERED: CLOP75TA2 PO (20:46)
[2017-10-18] MEDS ORDERED: DOCU-144 PO (20:46)
[2017-10-18] MEDS ORDERED: methylPREDNISolone SOD SUCC/PF 62.5 MG/ML VIAL IVP ONE (21:15)
[2017-10-18 21:43] VITALS: BP_SYST 95
[2017-10-18] MEDS ORDERED: IPRATROPIUM/ALBUTEROL SULFATE 3 ML AMPUL.NEB INH SCH (23:00)
[2017-10-19] VITALS (19 sets, daily range): BP systolic 75–123
[2017-10-19] MEDS ORDERED: LevALBUTEROL HCL 1.25 MG/0.5 ML *CONC.* VIAL.NEB (XOPENEX CONC.) INH PRN (00:45)
[2017-10-19] MEDS ORDERED: INSULIN REGULAR, HUMAN 100 UNITS/ML, 10 ML VIAL (novoLIN R) SUBCUT PRN (07:45)
[2017-10-19] MEDS: LEVOFLOXACIN 500 MG/D5W 100 ML IV SCH (09:19)
[2017-10-19] MEDS: ENOXAPARIN SODIUM 60 MG/0.6 ML SYRINGE SUBCUT SCH ×2 (09:19→21:10)
[2017-10-19] MEDS: ASPIRIN 81 MG TAB.CHEW PO SCH ×2 (09:20→11:33)
[2017-10-19] MEDS ORDERED: DEXTROSE 50% JECT 50 ML DISP.SYRIN IVP PRN (11:00)
[2017-10-19] MEDS ORDERED: ASPIRIN 81 MG TABLET(ECOTRIN) PO ONE (11:15)
[2017-10-19] MEDS: INSULIN REGULAR, HUMAN 100 UNITS/ML, 10 ML VIAL (novoLIN R) SUBCUT PRN ×2 (11:42→21:15)
[2017-10-19 14:21] LABS: BILIRUBIN,URINE NEGATIVE (NEGATIVE); BLOOD, URINE NEGATIVE (NEGATIVE); CLARITY/URINE CLEAR (CLEAR); COLOR,URINE YELLOW (YELLOW); GLUCOSE,URINE 3+ (NEGATIVE); KETONES,URINE TRACE (NEGATIVE); LEUKOCYTE ESTERASE ,URINE NEGATIVE (NEGATIVE); NITRITE, URINE NEGATIVE (NEGATIVE); PROTEIN URINE NEGATIVE (NEGATIVE); UROBILINOGEN,URINE 0.2 (0.2-1.0)
[2017-10-19] MEDS: tiZANidine HCL 4 MG TABLET PO SCH ×2 (14:23→21:09)
[2017-10-19 14:50] LABS: BACTERIA,URINE MANY /HPF (None Seen); RBC,URINE 0-3 /HPF (0-3)
[2017-10-19 14:53] LABS: HYALINE CASTS, URINE 50-70 /LPF (None Seen)
[2017-10-19 14:54] LABS: MUCUS,URINE 1+ /LPF (None Seen)
[2017-10-19] MEDS: LEVALBUTEROL HCL 0.63 MG/3 ML VIAL.NEB INH SCH ×2 (15:56→23:20)
[2017-10-19] MEDS: MONTELUKAST 10 MG TABLET PO SCH (18:00)
[2017-10-19] MEDS: metFORMIN HCL 500 MG TABLET PO SCH (18:00)
[2017-10-19] MEDS: glipiZIDE XL 5 MG TAB ( GLUCOTROL XL) PO SCH (18:00)
[2017-10-19] MEDS ORDERED: NOREPINEPHRINE 4 MG/4 ML VIAL IV ONE (18:24)
[2017-10-19] MEDS: NOREPINEPHRINE BITARTRATE 4 MG in NS 246 ML IV PRN (18:45)
[2017-10-19] MEDS ORDERED: NOREPINEPHRINE BITARTRATE 4 MG in NS 246 ML IV PRN (19:15)
[2017-10-19 19:20] LABS: CALCIUM 8.3 mg/dL (8.4-11.0); CREATININE 1.45 mg/dL (0.55-1.30); POTASSIUM 4.7 mmol/L (3.5-5.1)
[2017-10-19 19:35] LABS: BASOPHILS % (AUTO) 0.3 % (0.0-2.0); HEMATOCRIT 34.3 % (36-54); HEMOGLOBIN 11.4 g/dL (14.0-18.0); LYMPHOCYTES # (AUTO) 0.9 K/uL (1.0-5.5); LYMPHOCYTES % (AUTO) 16.2 % (20.5-51.5); MEAN CORPUSCULAR HEMOGLOBIN 31 pg (27-31); MEAN CORPUSCULAR HGB CONC 33 % (32-36); MEAN CORPUSCULAR VOLUME 94 fL (79.0-98.0); MONOCYTES # (AUTO) 0.2 K/uL (0.0-1.0); MONOCYTES % (AUTO) 3.7 % (1.7-9.3); NEUTROPHILS # (AUTO) 4.8 K/uL (1.8-7.7); NEUTROPHILS % (AUTO) 79.8 % (40.0-70.0); PLATELET COUNT (AUTO) 233 K/uL (130-430); RED BLOOD CELL COUNT(AUTO) 3.66 MIL/uL (4.2-6.2); RED CELL DISTRIBUTION WIDTH 15.4 % (9.0-15.0); WHITE BLOOD COUNT (AUTO) 5.9 K/uL (4.8-10.8)
[2017-10-19] MEDS: CARVEDILOL 6.25 MG TABLET (COREG) PO SCH (21:00)
[2017-10-19] MEDS: DOCUSATE SODIUM 100 MG CAPSULE PO SCH (21:09)
[2017-10-19] MEDS: ATORVASTATIN 20 MG TABLET PO SCH (21:09)
[2017-10-20] VITALS (30 sets, daily range): BP systolic 85–116
[2017-10-20] MEDS ORDERED: NOREPINEPHRINE 4 MG/4 ML VIAL IV ONE (01:27)
[2017-10-20 06:55] LABS: HEMATOCRIT 36.7 % (36-54); HEMOGLOBIN 12.2 g/dL (14.0-18.0); MEAN CORPUSCULAR HEMOGLOBIN 31 pg (27-31); MEAN CORPUSCULAR HGB CONC 33 % (32-36); MEAN CORPUSCULAR VOLUME 94 fL (79.0-98.0); PLATELET COUNT (AUTO) 266 K/uL (130-430); RED CELL DISTRIBUTION WIDTH 15.2 % (9.0-15.0); WHITE BLOOD COUNT (AUTO) 14.2 K/uL (4.8-10.8)
[2017-10-20] MEDS: INSULIN REGULAR, HUMAN 100 UNITS/ML, 10 ML VIAL (novoLIN R) SUBCUT PRN ×3 (06:57→20:33)
[2017-10-20] MEDS: LEVALBUTEROL HCL 0.63 MG/3 ML VIAL.NEB INH SCH ×3 (07:05→19:35)
[2017-10-20 07:39] LABS: ALBUMIN 2.9 g/dL (3.4-4.8); CALCIUM 8.6 mg/dL (8.4-11.0); CREATININE 1.52 mg/dL (0.55-1.30); FREE T4 (FREE THYROXINE) 0.8 ng/dL (0.6-1.6); POTASSIUM 4.6 mmol/L (3.5-5.1); THYROID STIMULATING HORMONE 1.3 uIu/mL (0.34-4.82); TOTAL BILIRUBIN 0.9 mg/dL (0.0-1.0)
[2017-10-20] MEDS: DOCUSATE SODIUM 100 MG CAPSULE PO SCH ×2 (08:45→20:20)
[2017-10-20] MEDS: ASPIRIN 81 MG TAB.CHEW PO SCH (08:45)
[2017-10-20] MEDS: ASPIRIN 81 MG TABLET(ECOTRIN) PO SCH (08:45)
[2017-10-20] MEDS: ENOXAPARIN SODIUM 60 MG/0.6 ML SYRINGE SUBCUT SCH (08:45)
[2017-10-20] MEDS: CARVEDILOL 6.25 MG TABLET (COREG) PO SCH ×2 (08:46→20:23)
[2017-10-20] MEDS: tiZANidine HCL 4 MG TABLET PO SCH ×3 (08:46→20:23)
[2017-10-20] MEDS: LOSARTAN POTASSIUM 25 MG TABLET PO SCH (08:46)
[2017-10-20] MEDS: CLOPIDOGREL BISULFATE 75 MG TABLET PO SCH (08:46)
[2017-10-20] MEDS: metFORMIN HCL 500 MG TABLET PO SCH (08:51)
[2017-10-20] MEDS: glipiZIDE XL 5 MG TAB ( GLUCOTROL XL) PO SCH ×2 (09:50→17:40)
[2017-10-20] MEDS: FUROSEMIDE 40 MG TABLET PO SCH (09:51)
[2017-10-20] MEDS: LEVOFLOXACIN 500 MG/D5W 100 ML IV SCH (09:51)
[2017-10-20 10:07] LABS: BAND % (MANUAL) 11 % (0-6); BASOPHILS % (MANUAL) 0 % (0-2); EOSINOPHILS % (MANUAL) 0 % (0-7); LYMPHOCYTES % (MANUAL) 6 % (20-46); MONOCYTES % (MANUAL) 2 % (0-11)
[2017-10-20] MEDS ORDERED: LevALBUTEROL HCL 1.25 MG/0.5 ML *CONC.* VIAL.NEB (XOPENEX CONC.) INH PRN (10:13)
[2017-10-20] MEDS: IPRATROPIUM BROM 0.5 MG/2.5 ML VIAL.NEB (ATROVENT) INH SCH ×2 (13:39→19:34)
[2017-10-20] MEDS: MONTELUKAST 10 MG TABLET PO SCH (17:40)
[2017-10-20] MEDS: NOREPINEPHRINE BITARTRATE 4 MG in NS 246 ML IV PRN (17:41)
[2017-10-20] MEDS: ATORVASTATIN 20 MG TABLET PO SCH (20:20)
[2017-10-21] VITALS (24 sets, daily range): BP systolic 85–118
[2017-10-21] MEDS: LEVALBUTEROL HCL 0.63 MG/3 ML VIAL.NEB INH SCH ×4 (01:00→19:41)
[2017-10-21] MEDS: IPRATROPIUM BROM 0.5 MG/2.5 ML VIAL.NEB (ATROVENT) INH SCH ×4 (01:00→19:42)
[2017-10-21] MEDS: NOREPINEPHRINE BITARTRATE 4 MG in NS 246 ML IV PRN ×2 (02:42→23:51)
[2017-10-21 06:03] LABS: BASOPHILS # (AUTO) 0.1 K/uL (0.0-0.2); BASOPHILS % (AUTO) 0.9 % (0.0-2.0); EOSINOPHILS % (AUTO) 0.1 % (0.0-4.0); HEMATOCRIT 36.8 % (36-54); HEMOGLOBIN 12.1 g/dL (14.0-18.0); LYMPHOCYTES # (AUTO) 1.3 K/uL (1.0-5.5); LYMPHOCYTES % (AUTO) 10.9 % (20.5-51.5); MEAN CORPUSCULAR HEMOGLOBIN 31 pg (27-31); MEAN CORPUSCULAR HGB CONC 33 % (32-36); MEAN CORPUSCULAR VOLUME 94 fL (79.0-98.0); MONOCYTES # (AUTO) 0.9 K/uL (0.0-1.0); MONOCYTES % (AUTO) 7.7 % (1.7-9.3); NEUTROPHILS # (AUTO) 9.6 K/uL (1.8-7.7); NEUTROPHILS % (AUTO) 80.4 % (40.0-70.0); PLATELET COUNT (AUTO) 219 K/uL (130-430); RED CELL DISTRIBUTION WIDTH 15.2 % (9.0-15.0); WHITE BLOOD COUNT (AUTO) 11.9 K/uL (4.8-10.8)
[2017-10-21 06:19] LABS: ALBUMIN 2.8 g/dL (3.4-4.8); CALCIUM 8.9 mg/dL (8.4-11.0); CREATININE 1.11 mg/dL (0.55-1.30); POTASSIUM 4.1 mmol/L (3.5-5.1); TOTAL BILIRUBIN 0.9 mg/dL (0.0-1.0)
[2017-10-21] MEDS: INSULIN REGULAR, HUMAN 100 UNITS/ML, 10 ML VIAL (novoLIN R) SUBCUT PRN ×4 (06:49→21:05)
[2017-10-21] MEDS: LEVOFLOXACIN 500 MG/D5W 100 ML IV SCH (08:23)
[2017-10-21] MEDS: tiZANidine HCL 4 MG TABLET PO SCH ×3 (08:24→20:56)
[2017-10-21] MEDS: ASPIRIN 81 MG TAB.CHEW PO SCH (08:24)
[2017-10-21] MEDS: CLOPIDOGREL BISULFATE 75 MG TABLET PO SCH (08:24)
[2017-10-21] MEDS: CARVEDILOL 6.25 MG TABLET (COREG) PO SCH ×2 (08:24→20:57)
[2017-10-21] MEDS: ASPIRIN 81 MG TABLET(ECOTRIN) PO SCH (08:24)
[2017-10-21] MEDS: glipiZIDE XL 5 MG TAB ( GLUCOTROL XL) PO SCH ×2 (08:25→17:54)
[2017-10-21] MEDS: LOSARTAN POTASSIUM 25 MG TABLET PO SCH (08:25)
[2017-10-21] MEDS: DOCUSATE SODIUM 100 MG CAPSULE PO SCH ×2 (08:25→20:57)
[2017-10-21] MEDS: FUROSEMIDE 40 MG TABLET PO SCH (08:25)
[2017-10-21] MEDS: MIDODRINE HCL 2.5 MG TABLET (PROAMATINE) PO SCH ×2 (09:25→21:19)
[2017-10-21] MEDS: MONTELUKAST 10 MG TABLET PO SCH (17:54)
[2017-10-21] MEDS: ATORVASTATIN 20 MG TABLET PO SCH (20:56)
[2017-10-21] MEDS ORDERED: MIDODRINE HCL 5 MG TABLET (PROAMATINE) ONE (21:18)
[2017-10-22] VITALS (19 sets, daily range): BP systolic 93–124
[2017-10-22] MEDS: IPRATROPIUM BROM 0.5 MG/2.5 ML VIAL.NEB (ATROVENT) INH SCH ×3 (01:38→13:36)
[2017-10-22] MEDS: LEVALBUTEROL HCL 0.63 MG/3 ML VIAL.NEB INH SCH ×3 (01:39→13:36)
[2017-10-22 05:22] LABS: CALCIUM 8.7 mg/dL (8.4-11.0); CREATININE 0.9 mg/dL (0.55-1.30); POTASSIUM 3.5 mmol/L (3.5-5.1)
[2017-10-22] MEDS: glipiZIDE XL 5 MG TAB ( GLUCOTROL XL) PO SCH (08:27)
[2017-10-22] MEDS: ASPIRIN 81 MG TAB.CHEW PO SCH (08:27)
[2017-10-22] MEDS: LEVOFLOXACIN 500 MG/D5W 100 ML IV SCH (08:27)
[2017-10-22] MEDS: DOCUSATE SODIUM 100 MG CAPSULE PO SCH (08:27)
[2017-10-22] MEDS: ASPIRIN 81 MG TABLET(ECOTRIN) PO SCH (08:28)
[2017-10-22] MEDS: CLOPIDOGREL BISULFATE 75 MG TABLET PO SCH (08:28)
[2017-10-22] MEDS: tiZANidine HCL 4 MG TABLET PO SCH ×2 (08:42→16:23)
[2017-10-22] MEDS: LOSARTAN POTASSIUM 25 MG TABLET PO SCH (08:43)
[2017-10-22] MEDS: MIDODRINE HCL 5 MG TABLET (PROAMATINE) PO SCH ×2 (08:59→16:23)
[2017-10-22] MEDS: CARVEDILOL 6.25 MG TABLET (COREG) PO SCH (09:00)
[2017-10-22] MEDS: FUROSEMIDE 40 MG TABLET PO SCH (09:00)
[2017-10-22] MEDS: INSULIN REGULAR, HUMAN 100 UNITS/ML, 10 ML VIAL (novoLIN R) SUBCUT PRN (12:02)
== END 2017-10-22 17:30 | disposition hospice, home (50) | DRG 291 ==
LOC: SED 18:18 → STU 21:05 → SIC 21:38 → STU 21:46 → SIC 10-19 18:30
PROVIDERS: ADMIT Internal Medicine Hospice and Palliative Medicine; ATTEND Internal Medicine Hospice and Palliative Medicine
DX: I13.0 Hypertensive heart and chronic kidney disease with heart failure and stage 1 through stage 4 chronic kidney disease, or unspecified chronic kidney disease (principal); I50.43 Acute on chronic combined systolic (congestive) and diastolic (congestive) heart failure; N17.9 Acute kidney failure, unspecified; I95.9 Hypotension, unspecified; E11.22 Type 2 diabetes mellitus with diabetic chronic kidney disease; E86.0 Dehydration; N18.4 Chronic kidney disease, stage 4 (severe); I42.0 Dilated cardiomyopathy; J44.1 Chronic obstructive pulmonary disease with (acute) exacerbation; J44.0 Chronic obstructive pulmonary disease with (acute) lower respiratory infection; J20.9 Acute bronchitis, unspecified; E78.5 Hyperlipidemia, unspecified; D64.9 Anemia, unspecified; E66.9 Obesity, unspecified; I25.10 Atherosclerotic heart disease of native coronary artery without angina pectoris; Z51.5 Encounter for palliative care; I69.320 Aphasia following cerebral infarction; Z95.810 Presence of automatic (implantable) cardiac defibrillator; I25.2 Old myocardial infarction; Z79.02 Long term (current) use of antithrombotics/antiplatelets; Z79.82 Long term (current) use of aspirin; Z79.899 Other long term (current) drug therapy; Z79.84 Long term (current) use of oral hypoglycemic drugs; Z87.891 Personal history of nicotine dependence; Z68.30 Body mass index [BMI] 30.0-30.9, adult
CPT/HCPCS: 36415; 36600; 71045; 78579; 78580-TC; 80048; 80053; 80061; 81000-TC; 82550-TC; 82803-TC; 82962; 83036; 83605; 83880; 84439; 84443-TC; 84484; 85007; 85025; 85027; 85379; 85610-TC; 85730-TC; 87040-TC; 87070-TC; 87081; 87086; 87205-TC; 93005; 94640; 96361; 96374; A9539; A9540; J1650; J1815; J1940; J1956; J2930; J7040; J7050